=== PATIENT | female | born 1960 | race Hispanic/Latino ===

== ENCOUNTER 2017-01-18 16:35 | Emergency (ER) | payer BC ==
--- NOTE | 2017-01-18 17:03 | ED PDOC ---
Arrival/HPI - General Time Seen by Provider: 01/18/17 17:02 Historian: Patient - History of Present Illness Narrative History of Present Illness (Text): 01/18/17 17:03 This 56 yo female presents to this ED c/o right foot pain since last night. Patient stated she "rolled" her right foot last night while walking on street. Denies knee or ankle pain. Denies fall, back pain, or hip pain. Time/Duration: Other (since last night) Context: Home Past Medical History - Provider Review Nursing Documentation Reviewed: Yes - Infectious Disease Hx of Infectious Diseases: None - Endocrine/Metabolic Hx Hypothyroidism: Yes - Psychiatric Hx Substance Use: No - Surgical History Hx Orthopedic Surgery: Yes - Anesthesia Hx Anesthesia: Yes Hx Anesthesia Reactions: No Hx Malignant Hyperthermia: No Family/Social History - Physician Review Nursing Documentation Reviewed: Yes Family/Social History: No Known Family HX Smoking Status: Never Smoked Hx Alcohol Use: No Hx Substance Use: No Allergies/Home Meds Allergies/Adverse Reactions: Allergies No Known Allergies Allergy (Verified 10/29/15 18:51) Review of Systems - Review of Systems Constitutional: Normal. absent: Fatigue, Weight Change, Fevers Eyes: Normal ENT: Normal Respiratory: Normal Cardiovascular: Normal Gastrointestinal: Normal Genitourinary Female: Normal Musculoskeletal: Other ((+) right dorsal foot pain and swelling.) Skin: Normal Neurological: Normal Endocrine: Normal Hemo/Lymphatic: Normal Psychiatric: Normal Physical Exam Vital Signs Temp Pulse Resp BP Pulse Ox 01/18/17 17:19 98.0 F 77 16 161/87 H 95 01/18/17 17:14 16 98 Temperature: Afebrile Blood Pressure: Normal Pulse: Regular Respiratory Rate: Normal Appearance: Positive for: Well-Appearing, Non-Toxic, Comfortable Pain Distress: None Mental Status: Positive for: Alert and Oriented X 3 - Systems Exam Head: Present: Atraumatic, Normocephalic Pupils: Present: PERRL Extroacular Muscles: Present: EOMI Conjunctiva: Present: Normal Mouth: Present: Moist Mucous Membranes Upper Extremity: Present: Normal Inspection, Normal ROM, NORMAL PULSES, Neurovascularly Intact, Capillary Refill < 2s Lower Extremity: Present: NORMAL PULSES, Normal ROM, Tenderness (Mild tenderness dorsal aspect of right foot), Swelling, Neurovascularly Intact, Capillary Refill < 2 s. No: CALF TENDERNESS, Erythema, Deformity, Temperature Abnormalties Neurological: Present: CN II-XII Intact Skin: Present: Warm, Dry, Normal Color. No: Rashes Psychiatric: Present: Alert, Oriented x 3 Medical Decision Making ED Course and Treatment: 01/18/17 17:44 Re-evaluation. Patient feels better. Discussed results and plan with patient who expresses understanding. All questions answered and there is agreement with the plan to discharge home with instructions. Patient stable for discharge. Return if symptoms persist or worsen. Re-evaluation Time: 17:45 Reassessment Condition: Re-examined, Improved - RAD Interpretation Narrative RAD Interpretations (Text): 01/18/17 17:45 Foot x-rays: poor lateral view. No Fx or sublux. Radiology Orders: 01/18/17 17:02 FOOT RIGHT 3 VIEWS ROUTINE [RAD] Stat Disposition/Present on Arrival - Present on Arrival Any Indicators Present on Arrival: No History of DVT/PE: No History of Uncontrolled Diabetes: No Urinary Catheter: No History Surgical Site Infection Following: None - Disposition Have Diagnosis and Disposition been Completed?: Yes Diagnosis: Foot sprain Disposition: HOME/ ROUTINE Disposition Time: 17:45 Patient Plan: Discharge Condition: GOOD Discharge Instructions (ExitCare): Foot Sprain (ED) Additional Instructions: Call private Foot doctor for follow up visit in 1-2 days. Keep foot elevated, ice, rest, ramakrishna bandage. Return to emergency if symptoms worsen. Prescriptions: Naproxen 500 mg PO BID #10 tab Referrals: Leslie Jon DPM [Staff Provider] - Follow up with primary Forms: WORK NOTE
[2017-01-18 17:14] VITALS: BMI 26.5
[2017-01-18 17:18] VITALS: RESP 16
[2017-01-18 17:21] VITALS: BP 161/87; PULSE 77; TEMP 98
[2017-01-18 17:57] VITALS: O2SAT 98
--- NOTE | 2017-01-19 09:21 | RAD ---
PROCEDURE: Right Foot Radiographs. HISTORY: pain COMPARISON: None. FINDINGS: BONES: Normal. No fracture. JOINTS: Normal. SOFT TISSUES: Normal. OTHER FINDINGS: None. IMPRESSION: Normal right foot radiographs.
== END 2017-01-18 17:57 | disposition home or self-care (01) ==
LOC: ED 16:35
DX: S93.601A Unspecified sprain of right foot, initial encounter (principal); X58.XXXA Exposure to other specified factors, initial encounter; Y93.01 Activity, walking, marching and hiking; Y92.410 Unspecified street and highway as the place of occurrence of the external cause